=== PATIENT | female | born 1960 | race African-American/Black ===

== ENCOUNTER 2016-11-21 03:41 | Emergency (ER) | payer OTHER ==
[~2016-11-21] VITALS: Ht 162.6 cm; Wt 117.7 kg
[2016-11-21 04:42] VITALS: BP 143/83
== END 2016-11-21 04:42 | disposition home or self-care (01) ==
LOC: ED 03:41
DX: K57.90 Diverticulosis of intestine, part unspecified, without perforation or abscess without bleeding (principal); R03.0 Elevated blood-pressure reading, without diagnosis of hypertension; J45.909 Unspecified asthma, uncomplicated

== ENCOUNTER 2017-02-26 22:31 | Inpatient (IN) | payer OTHER ==
[~2017-02-26] VITALS: Ht 160 cm; Wt 119.7 kg
--- NOTE | 2017-02-26 23:11 | NUR ---
PT PRESENT TO ED BROUGHT TO ROOM 12 FROM TRIAGE C/O ELEVATED BLOOD PRESSURE DENIES NAUSEA, VOMITING, DIZZINESS, HEADACHES, PAIN. NO ACUTE CARDIAC OR RESPIRATORY DISTRESS NOTED PER PT SHE HAS NOT BEEN DIAGNOSED WITH HYPERTENSION. AWAITING MD STEPHENS.
--- NOTE | 2017-02-27 00:29 | NUR ---
IV ESTABLISHED PT WENT TO CT SCAN NOW C/O PAIN 5/10 FROM PREVIOUS DIAGNOSIS OF DIVERTICULITIS. NO DISTRESS NOTED WILL MEDICATE PER MD.
[2017-02-27 00:43] LABS: BASOPHIL % 0.4 % (0-2); PLATELET COUNT 140 x10^3mcL (130-400)
[2017-02-27 00:45] LABS: CALCIUM 9.1 mg/dL (8.5-10.1); CARBON DIOXIDE 29.1 mmol/L (21-32); CHLORIDE SERUM 104 mmol/L (98-107); CREATININE SERUM 0.9 mg/dL (0.6-1.0); GFR1 > 60 mL/min; GLUCOSE SERUM 105 mg/dL (74-106); SODIUM SERUM 140 mmol/L (136-145)
[2017-02-27 00:49] LABS: ALBUMIN 3.4 g/dL (3.4-5.0); ALKALINE PHOSPHATASE 98 U/L (46-116); ALT/SGPT 17 U/L (14-59); AST/SGOT 15 U/L (15-37); BILIRUBIN TOTAL 0.2 mg/dL (0.20-1.00); LIPASE 106 IU/L (73-393); TOTAL PROTEIN, SERUM 7.3 g/dL (6.4-8.2)
--- NOTE | 2017-02-27 00:50 | NUR ---
PT BACK FROM CT. MEDICATED FOR PAIN. FLUIDS INFUSING . REFUSED JESSICA ALEXANDRA AWARE. VSS.
[2017-02-27 02:52] LABS: T3 TOTAL 1.42 ng/mL
[2017-02-27] MEDS ORDERED: NORCO1 TA2 PO (02:54)
[2017-02-27 02:55] LABS: FREE T4 1.01 ng/dL (0.76-1.46); FREE THYROXINE INDEX 2.5 ug/dL (1.4-4.5); PHOSPHOROUS 3.9 mg/dL (2.5-4.9); T4(THYROXINE) 7.7 ug/dL (4.7-13.3)
[2017-02-27] MEDS ORDERED: SOMA350 MG PO (02:55)
--- NOTE | 2017-02-27 03:06 | NUR ---
REPORT GIVEN TO BASIA SAENZ, MRSA. MED RE CON COMPLETED ANTIBIOTICS INFUSING PRIOR TO DEPARTURE. VSS. AAOX4 NO CHANGE IN CONDITION . TRANSFERRED IN STABLE CONDITION.
--- NOTE | 2017-02-27 03:25 | NUR ---
REC'D PT FROM ED VIA AMANDA. AAOX4. ABLE TO MAKE NEEDS KNOWN. ORIENTED TO ROOM AND SURROUNDINGS. C/O OF ABD PAIN 12/06. WILL MEDICATE PER EMAR. TELE# 3 NSR. LUNG SOUNDS ARE CTA. NO SOB. ON RA. BREATHING EVEN AND UNLABORED. ABD ROUND AND ACTIVE. NO EDEMA NOTED. IV ACCESS TO THE RH PATENT AND INTACT. WILL PROCEED TO THE PLAN OF CARE.
[2017-02-27 03:32] VITALS: BP 145/78
[2017-02-27 03:43] LABS: microscopic required? NO
[2017-02-27 03:51] LABS: urine erythrocyte NEGATIVE (NEGATIVE)
[2017-02-27 04:16] LABS: AMPHETAMINE QUAL UR NONE DETECTED (NEG <=1000)
--- NOTE | 2017-02-27 06:24 | NUR ---
PT SLEPT PERIODICALLY THROUGHOUT THE SHIFT. NO DISTRESS OR SIGNIFICANT CHANGES NOTED. NO SOB. BREATHING EVEN AND UNLABORED. ALL NEEDS MET AND ATTENDED TO. IV ACCESS TO THE RH PATENT AND INTACT INFUSING WELL. WILL ENDORSE ALL CARE TO ONCOMING NURSE.
[2017-02-27 06:27] LABS: BASOPHIL % 1.1 % (0-2); RED CELL DISTRIBUTION WIDTH 13.9 % (11.5-14.5)
[2017-02-27 06:55] LABS: PLATELET COUNT 122 x10^3mcL (130-400)
--- NOTE | 2017-02-27 07:20 | NUR ---
RECEIVED PATIENT SITTING UP IN BED A/O X4, CLEAR SPEECH, NO NEURO DEFICITS NOTED. TELE # [address], DENIES CHEST PAIN. BREATHING EVEN UNLABBORED ON RA, DENIES SOB, NO DISTRESS NOTED. SKIN IS WARM CDI WITH IV TO RH INTACT INFUSING NS AT 50 ML/HR FREE FROM REDNESS AND INFILTRATION. PATIENT DENIES ANY PAIN. IS CALM WITH CARE. INSTRUCTED TO CALL FOR ASSISTANCE IF NEEDED. CALL LIGHT WITHIN REACH, BED IN LOW POSITION. WILL MONITOR.
--- NOTE | 2017-02-27 08:51 | NUR ---
ROUNDS MADE- DR. VENEGAS, RESIDENT TEAM, CHARGE NURSE AND PRIMARY NURSE AT BEDSIDE. POC REVIEWED WITH PATIENT- PATIENT ADMITTED FOR DIVERTICULITIES, INFORMED OF WHAT IT IS/CAUSES/TREATMENT. PATIENT SEEN BY DR. PEDERSEN. ALL QUESTIONS AND CONCERNS ADDRESSED. WILL MONITOR.
[2017-02-27 10:08] VITALS: BP 134/75
--- NOTE | 2017-02-27 10:30 | NUR ---
PATIENT SEEN AMBULATING IN HALLWAY, GAIT STEADY, NO DISTRESS NOTED. WILL MONITOR.
[2017-02-27 13:12] VITALS: BP 149/72
--- NOTE | 2017-02-27 14:39 | NUR ---
PATIENT SITTING UP AT EDGE OF BED, SPEAKING WITH VISITOR, NO DISTRESS NOTED. ALL NEEDS ATTENDED TO. WILL MONITOR.
[2017-02-27 17:30] VITALS: BP 148/79
--- NOTE | 2017-02-27 18:05 | NUR ---
PATIENT SITTING UP AT EDGE OF BED, NO DISTRESS NOTED. TOLERATED DIET WELL. IV TO RH INTACT INFUSING IVF WELL. ALL NEEDS ATTENDED TO DURING SHIFT. SAFETY PRECAUTIONS MAINTAINED. WILL ENDORSE CARE TO ONCOMING NURSE.
--- NOTE | 2017-02-27 19:30 | NUR ---
RECEIVED PATIENT IN BED RESTING WATCHING TELEVISION WITH NO C/O ABDOMINAL DISCOMFORT AT THIS TIME. ABDOMEN OBESE ROUND AND NON TENDER WITH ACTIVE BS. TELE#3 NSR ON MONITOR. IV TO RH INTACT AND INFUSING WELL. WILL CONTINUE TO MONITOR, CALL LIGHT WITHIN REACH.
[2017-02-27 20:55] VITALS: BP 139/71
--- NOTE | 2017-02-28 02:05 | NUR ---
AWAKE C/O ABDOMINAL PAIN AT SCALE OF 6/10 PER PATIENT , MEDICATED WITH NORCO 1 TAB PO PRESCRIBED. WILL CONTINUE TO MONITOR.
--- NOTE | 2017-02-28 03:01 | NUR ---
RELIEF NOTED PER PATIENT AFTER PAIN MEDS WAS GIVEN. WILL CONTINUE TO MONITOR.
--- NOTE | 2017-02-28 05:15 | NUR ---
SLEPT FAIRLY C/O ABDOMINAL DISCOMFORT X1 THE ENTIRE SHIFT AND MEDICATED PRESCRIBED. ALL NEEDS ATTENDED.
[2017-02-28 06:13] VITALS: BP 116/59
[2017-02-28 06:43] LABS: CALCIUM 8.9 mg/dL (8.5-10.1); CARBON DIOXIDE 25.9 mmol/L (21-32); CHLORIDE SERUM 103 mmol/L (98-107); CREATININE SERUM 0.7 mg/dL (0.6-1.0); GFR1 > 60 mL/min; GLUCOSE SERUM 116 mg/dL (74-106); POTASSIUM SERUM 3.7 mmol/L (3.5-5.1); SODIUM SERUM 138 mmol/L (136-145)
[2017-02-28 07:19] LABS: BASOPHIL % 0.2 % (0-2); PLATELET COUNT 136 x10^3mcL (130-400)
--- NOTE | 2017-02-28 07:20 | NUR ---
RECEIVED PATIENT RESTING IN BED COMFORTABLY, A/O X4, NO NEURO DEFICITS NOTED. TELE # [address], DENIES CHEST PAIN. BREATHING EVEN UNLABBORED ON RA, DENIES SOB, NO DISTRESS NOTED. PATIENT IS TOLERATING CLEAR DIET WELL, DENIES N/V OR ABD PAIN. NO BM YET ALTHOUGH PATIENT STATES SHE FEELS SHE NEEDS TO GO, MADE AWARE OF ORDER FOR STOOL CULTURE. SKIN IS WARM CDI WITH IV TO RH INTACT INFUSINT D5 1/2 NS AT 50 ML/HR FREE FROM REDNESS AND INFILTRATION. PATIENT CALM WITH CARE. INSTRUCTED TO CALL FOR ASSISTANCE IF NEEDED. CALL LIGHT WITHIN REACH, BED IN LOW POSITION. WILL CONTINUE TO MONITOR.
--- NOTE | 2017-02-28 09:18 | NUR ---
ROUNDS MADE- DR. VENEGAS, RESIDENT TEAM, CHARGE NURSE AND PRIMARY NURSE AT BEDSIDE. POC REVIEWED WITH PATIENT- PATIENT ON CLEAR LIQUID DIET, WILL HAVE HER DIET ADVANCED FOR LUNCH AND DINNER. IF TOLERATES DIET WELL, WILL BE ABLE TO BE DISCHARGED HOME TOMORROW. ALL QUSETIONS AND CONCERNS ADDRESSED. WILL MONITOR.
[2017-02-28 10:00] VITALS: BP 135/78
--- NOTE | 2017-02-28 10:27 | NUR ---
PATIENT SEEN AMBULATING IN HALLWAY, GAIT STEADY, NO DISTRESS NOTED. WILL CONTINUE TO MONITOR.
[2017-02-28 14:05] VITALS: BP 139/71
--- NOTE | 2017-02-28 14:58 | NUR ---
PATIENT SITTING UP AT EDGE OF BED SPEAKING TO HER SON WHO IS AT BEDSIDE. NO DISTRESS NOTED, DENIES ANY PAIN. ALL NEEDS ATTENDED TO. SAFETY PRECAUTIONS MAINTAINED. WILL MONITOR.
[2017-02-28] MEDS ORDERED: ZES10 PO (16:42)
[2017-02-28] MEDS ORDERED: COL100 PO (16:43)
[2017-02-28] MEDS ORDERED: FLA500 PO (16:46)
[2017-02-28] MEDS ORDERED: LEVOFLOXACIN750 M1 PO (16:47)
[2017-02-28] MEDS ORDERED: LAC PO (16:49)
[2017-02-28] MEDS ORDERED: TYL325 PO (16:53)
[2017-02-28 17:03] VITALS: BP 139/71
--- NOTE | 2017-02-28 17:47 | NUR ---
PATIENT TO BE DISCHARGED HOME PER MD ORDER. DISCHARGE INSTRUCTIONS, BELONGINGS LIST AND EDUCATION GIVEN TO PATIENT. ALL QUESTIONS AND CONCERNS ADDRESSED. IV TO RH REMOVED, CATH INTACT. ID BANDS REMOVED, TELE MONITOR REMOVED. PATIENT STABLE FOR DISCHARGE. PATIENT ASSISTED DOWN TO LOBBY VIA WHEELCHAIR ACCOMPANIED BY NURSE AID. ALL PERSONAL BELONGINGS SENT HOME WITH PATIENT.
== END 2017-02-28 17:46 | disposition home or self-care (01) | DRG 392 ==
LOC: ED 22:31 → DU 02-27 02:01
PROVIDERS: Emergency Medicine; ADMIT Family Medicine
DX: K57.32 Diverticulitis of large intestine without perforation or abscess without bleeding (principal); Z68.42 Body mass index [BMI] 45.0-49.9, adult; E44.0 Moderate protein-calorie malnutrition; R73.03 Prediabetes; I10 Essential (primary) hypertension; F17.210 Nicotine dependence, cigarettes, uncomplicated; E66.01 Morbid (severe) obesity due to excess calories
CPT/HCPCS: 84439; 87046; 87046-59; J1885; J1956; J2405; J3010; J3490; J7030

== ENCOUNTER 2018-04-05 05:20 | Emergency (ER) | payer OTHER ==
[~2018-04-05] VITALS: Ht 160 cm; Wt 125.2 kg
[~2018-04-05 05:20] MED LIST: COL100 PO; FLA500 PO; LAC PO; LEVOFLOXACIN750 M1 PO; NORCO1 TA2 PO; SOMA350 MG PO; TYL325 PO; ZES10 PO
[2018-04-05 05:25] VITALS: BP 135/67
[2018-04-05 07:33] LABS: UA SPECIFIC GRAVITY 1.025 (1.005-1.035); microscopic required? YES; urine erythrocyte NEGATIVE (NEGATIVE)
[2018-04-05 07:40] LABS: CALCIUM 8.9 mg/dL (8.5-10.1); CARBON DIOXIDE 26.9 mmol/L (21-32); CHLORIDE SERUM 101 mmol/L (98-107); CREATININE SERUM 0.8 mg/dL (0.6-1.0); GFR1 > 60 mL/min; GLUCOSE SERUM 103 mg/dL (74-106); POTASSIUM SERUM 3.7 mmol/L (3.5-5.1); SODIUM SERUM 136 mmol/L (136-145)
[2018-04-05 07:44] LABS: ALKALINE PHOSPHATASE 82 U/L (46-116); ALT/SGPT 16 U/L (14-59); AST/SGOT 13 U/L (15-37); BILIRUBIN TOTAL 0.3 mg/dL (0.20-1.00); LIPASE 113 IU/L (73-393)
[2018-04-05 07:45] LABS: ALBUMIN 3.3 g/dL (3.4-5.0)
[2018-04-05 08:00] LABS: BASOPHIL % 0.4 % (0-2); PLATELET COUNT 148 x10^3mcL (130-400); RED CELL DISTRIBUTION WIDTH 13.9 % (11.5-14.5)
== END 2018-04-05 08:18 | disposition home or self-care (01) ==
LOC: ED 05:20
PROVIDERS: Emergency Medicine
DX: K57.92 Diverticulitis of intestine, part unspecified, without perforation or abscess without bleeding (principal); Z90.49 Acquired absence of other specified parts of digestive tract
CPT/HCPCS: 36415